=== PATIENT | female | born 1950 | race African-American/Black ===

== ENCOUNTER 2025-07-14 08:37 | Emergency (ER) | payer OTHER, MEDICAID ==
[~2025-07-14] VITALS: Ht 170.2 cm; Wt 91.0 kg
[2025-07-14 08:39] VITALS: O2SAT 98
[2025-07-14 10:32] LABS: BASOPHILS % 0.6 % (0.0-2.0); EOSINOPHILS % 4.7 % (0.0-5.0); HEMATOCRIT. 37.3 % (36.0-48.0); HEMOGLOBIN. 12.1 g/dL (12.0-16.0); LYMPHOCYTES % 37.9 % (20.0-50.0); MEAN PLATELET VOLUME 10.2 fl (7.4-10.4); MONOCYTES % 12.0 % (2.0-8.0); NEUTROPHILS % 44.8 % (40.0-76.0); PLATELET 170 x1000/uL (130-400); RED BLOOD CELL COUNT 3.92 mill/uL (4.2-5.4); RED CELL DISTRIBUTION WIDTH 14.1 % (11.6-14.6)
[2025-07-14 10:39] LABS: CREATININE 0.8 mg/dL (0.6-1.0); UREA NITROGEN BLOOD 12 mg/dL (9-23)
[2025-07-14 10:41] LABS: TROPONIN I HIGH SENSITIVITY 6 ng/L (3.0-34)
[2025-07-14] MEDS: CARBAMAZEPINE 200MG TABLET PO ONE (12:52)
[2025-07-14 13:56] VITALS: BP 164/84; PULSE 84; RESP 16; TEMP 36.6; O2SAT 99
== END 2025-07-14 13:59 | disposition home or self-care (01) ==
LOC: ER 08:45 → CMPBEDREQ 07-15 07:38
DX: S09.8XXA Other specified injuries of head, initial encounter (principal); R53.1 Weakness; E11.9 Type 2 diabetes mellitus without complications; I10 Essential (primary) hypertension; I69.30 Unspecified sequelae of cerebral infarction; Z98.890 Other specified postprocedural states; W22.8XXA Striking against or struck by other objects, initial encounter; Y93.89 Activity, other specified; Y92.89 Other specified places as the place of occurrence of the external cause; Y99.8 Other external cause status
CPT/HCPCS: 36415; 71045; 80048; 84484; 85025; 93005; 99285